=== PATIENT | female | born 1980 | race American Indian/Alaskan Native ===

== ENCOUNTER 2018-12-21 10:07 | Inpatient (IN) | payer MEDICAID, OTHER ==
--- NOTE | 2018-12-21 10:24 | C.PDOC ---
History Of Present Illness 38 year old female presents to the ED for evaluation of left breast abscess for one month. Patient reports no improvement after antibiotics. Patient reports persistent burning and pain. She denies discharge, fever. Patient was referred by Dr. Ewing for Incision and Drainage in the OR. L BREAST ABSCESS X 1 MO. NO IMPROVE AFTER ABX. PERSIST BURNING, PAIN. NO DC. NO FEVER. REFERRED BY DR EWING FOR I&D IN O.R. EXAM NONTOXIC BREAST Time Seen by Provider: 12/21/18 10:21 Chief Complaint (Nursing): Breast Problem History Per: Patient History/Exam Limitations: no limitations Onset/Duration Of Symptoms: Days Current Symptoms Are (Timing): Still Present Past Medical History Reviewed: Historical Data, Nursing Documentation, Vital Signs Vital Signs: Last Vital Signs Temp 98.4 F 12/21/18 10:15 Pulse 103 H 12/21/18 10:15 Resp 20 12/21/18 10:15 BP 155/91 H 12/21/18 10:15 Pulse Ox 97 12/21/18 10:15 - Medical History PMH: Asthma, HTN, Seizures (witness by significant other) Denies: Chronic Kidney Disease Surgical History: No Surg Hx Family History: States: Unknown Family Hx - Social History Hx Alcohol Use: Yes Hx Substance Use: No - Immunization History Hx Influenza Vaccination: Yes (10/2018) Hx Pneumococcal Vaccination: No Review Of Systems Constitutional: Negative for: Fever, Chills Skin: Positive for: Other (left breast abscess ) Physical Exam - Physical Exam Appears: Non-toxic, No Acute Distress Skin: Normal Color, Warm, Dry Head: Atraumatic, Normacephalic Eye(s): bilateral: Normal Inspection Oral Mucosa: Moist Neck: Supple Chest: Symmetrical, No Deformity, Tenderness (mild tenderness to left breast ) Cardiovascular: Rhythm Regular, No Murmur Respiratory: Normal Breath Sounds, No Rales, No Rhonchi, No Wheezing Extremity: Normal ROM, Capillary Refill (less than 2 seconds ) Neurological/Psych: Oriented x3, Normal Speech, Normal Cognition ED Course And Treatment - Laboratory Results Result Diagrams: 12/21/18 10:53 12/21/18 10:53 O2 Sat by Pulse Oximetry: 97 (on RA) Pulse Ox Interpretation: Normal Progress Note: Bloodwork, urinalysis and ultrasound ordered and reviewed. Disposition Counseled Patient/Family Regarding: Studies Performed, Diagnosis - Disposition Disposition: HOSPITALIZED Disposition Time: 10:24 Condition: STABLE - POA Present On Arrival: None - Clinical Impression Clinical Impression: Abscess of breast - Scribe Statement The provider has reviewed the documentation as recorded by the Scribe (Santa Miller) Provider Attestation: All medical record entries made by the Scribe were at my direction and personally dictated by me. I have reviewed the chart and agree that the record accurately reflects my personal performance of the history, physical exam, medical decision making, and the department course for this patient. I have also personally directed, reviewed, and agree with the discharge instructions and disposition.
[2018-12-21 11:08] LABS: BASO # 0.1 K/uL (0.0-0.2); BASO % 0.9 % (0.0-2.0); EOS # 0.2 K/uL (0.0-0.7); EOS % 3.6 % (0.0-4.0); HEMOGLOBIN 14.7 g/dL (11.0-16.0); LYMPH # 1.9 K/uL (1.0-4.3); MEAN CELL VOLUME 87.9 fL (81.0-99.0); MEAN CORPUSCULAR HEMOGLOBIN 30.1 pg (27.0-31.0); MEAN CORPUSCULAR HGB CONC 34.2 g/dL (33.0-37.0); MEAN PLATELET VOLUME 8.2 fL (7.2-11.7); MONO # 0.3 K/uL (0.0-0.8); MONO % 4.6 % (0.0-10.0); NEUT # 3.2 K/uL (1.8-7.0); NEUT % 56.9 % (50.0-75.0); NRBC % 0.1 % (0.0-2.0); RBC 4.88 Mil/uL (3.80-5.20)
[2018-12-21 11:11] LABS: WHITE BLOOD COUNT 5.7 K/uL (4.8-10.8)
[2018-12-21 11:12] LABS: HCG,QUALITATIVE URINE NEGATIVE (NEGATIVE)
[2018-12-21 11:17] LABS: SQUAMOUS EPITHIAL 3 /hpf (0-5); URINE BILIRUBIN NEGATIVE (NEGATIVE); URINE BLOOD NEGATIVE (NEGATIVE); URINE CLARITY Clear (Clear); URINE COLOR Yellow (YELLOW); URINE GLUCOSE (UA) NORMAL (Normal); URINE LEUKOCYTE ESTERASE NEG Leu/uL (Negative); URINE PROTEIN NEGATIVE (NEGATIVE); URINE UROBILINOGEN NORMAL mg/dL (0.2-1.0)
[2018-12-21 11:29] LABS: ALB/GLOB RATIO 1.4 (1.0-2.1); ALBUMIN 4.5 g/dL (3.5-5.0); ALT/SGPT 23 U/L (9-52); AST/SGOT 25 U/L (14-36); BLOOD UREA NITROGEN 10 mg/dL (7-17); CALCIUM 9.1 mg/dl (8.6-10.4); GFR NON-AFRICAN AMERICAN > 60
--- NOTE | 2018-12-21 11:32 | US ---
Date of service: 12/21/2018 HISTORY: Breast pain, abscess suspected left breast Relevant surgical history: 2015 4 left breast abscess TECHNIQUE: Sonographic evaluation of both breast was performed. FINDINGS: RIGHT BREAST: No solid or cystic masses identified. Cyst(s): None Breast mass: None Dilated ducts: None Parenchymal distortion: None Skin thickening or subcutaneous abnormalities: None No axillary lymphadenopathy identified. LEFT BREAST: Cyst(s): None Breast mass: None Dilated ducts: None Parenchymal distortion: None Skin thickening or subcutaneous abnormalities: None No axillary lymphadenopathy identified. IMPRESSION: No sonographic evidence of malignancy. BIRADS: BIRADS 1 (negative)
[2018-12-21] MEDS ORDERED: ceFAZolin 1 gm in NS 2 GM/200 ML BAG IVPB ONE (13:32)
[2018-12-21] MEDS ORDERED: Bupivacaine 0.25% 20 ML INJ IJ ONE (13:33)
[2018-12-21] MEDS ORDERED: Lidocaine Hydrochloride 10 ML INJ ONE (13:33)
[2018-12-21] MEDS ORDERED: Midazolam 2 MG/2 ML VIAL ONE (13:40)
[2018-12-21] MEDS ORDERED: Propofol 10 mg/ml Inj (20 ML) ONE (13:41)
[2018-12-21] MEDS: HYDROmorphone 0.5 mg/0.5 ml ISec IVP PRN ×2 (14:25→14:48)
[2018-12-21] MEDS ORDERED: Dextrose 5%/0.45% NS 1,000 ML IV ONE (15:45)
[2018-12-21] MEDS: Dextrose 5%/0.45% NS 1,000 ML IV SCH (16:26)
[2018-12-21] MEDS: Oxycodone/Acetaminophen 5/325 mg Tab PO PRN ×3 (17:04→21:05)
[2018-12-21] MEDS: (Novolin R) Insulin Human Regular 100 units/ml vial SC SCH (21:51)
--- NOTE | 2018-12-22 01:02 | OP ---
PROCEDURE DATE: 12/21/2018 PREOPERATIVE DIAGNOSIS: Infected left breast mass with abscess. POSTOPERATIVE DIAGNOSIS: Infected left breast mass with abscess. PROCEDURE PERFORMED: Wide deep excision of infected left breast mass with partial tissue flap closure. SURGEON: Gray Agarwal MD ANESTHESIA: General. BLOOD LOSS: 20 mL. POSTOPERATIVE CONDITION: Stable. INDICATIONS FOR SURGERY: This is a 38-year-old female with a history of having painful mass on the undersurface of her left breast. It was found to be an infected mass. She was taken to the OR after admission through the emergency room for I and D and possible excision. DESCRIPTION OF PROCEDURE: The patient was taken to the operating room. General anesthesia was administered. The left breast was prepped and draped. A generous elliptical incision was made surrounding the mass and infected area carried down to the subcutaneous tissue to near the fascia. Bleeding was controlled using the Bovie. The larger chest wall blood vessel was repaired. The wound was irrigated with copious amounts of saline solution. Any collections were drained and cultured. Partial tissue flap closure was performed at the periphery with Monocryl and the central portion was packed open with wet saline gauze. The patient tolerated the procedure well and returned to recovery room in stable condition. Gray Agarwal MD
[2018-12-22] MEDS: Dextrose 5%/0.45% NS 1,000 ML IV SCH ×2 (03:11→04:48)
[2018-12-22] MEDS: Oxycodone/Acetaminophen 5/325 mg Tab PO PRN (04:46)
[2018-12-22] MEDS: (Novolin R) Insulin Human Regular 100 units/ml vial SC SCH ×2 (07:57→11:43)
[2018-12-22] MEDS ORDERED: Midazolam 2 MG/2 ML VIAL ONE (16:14)
[2018-12-22] MEDS ORDERED: Propofol 10 mg/ml Inj (20 ML) ONE (16:14)
[2018-12-22] MEDS ORDERED: Lidocaine Hydrochloride 5 ML INJ ONE (16:15)
[2018-12-22] MEDS ORDERED: ceFAZolin 1 gm in NS 1 GM/100 ML BAG IVPB ONE (16:49)
[2018-12-22] MEDS ORDERED: Bacitracin 500 Units/gm Oint Foilpak UD ONE (16:49)
[2018-12-22] MEDS ORDERED: Lactated Ringer's 1,000 ML IV ONE (17:25)
[2018-12-22] MEDS ORDERED: HYDROmorphone 0.5 mg/0.5 ml ISec IVP PRN (17:27)
[2018-12-22 17:50] VITALS: O2SAT 95
[2018-12-22 18:28] VITALS: BP 142/90; PULSE 88; RESP 18; TEMP 97.6
--- NOTE | 2018-12-22 22:29 | HP ---
CHIEF COMPLAINT: Left breast pain. HISTORY OF PRESENT ILLNESS: This is a 38-year-old female young woman with history of type 2 diabetes, hypertension, hyperlipidemia, and seizure disorder who was compliant with diet, medication, and followup. She came in because of left breast pain, and she underwent surgery. She needs to be admitted. She has left breast pain. No fever, chills. She denies any nausea, vomiting. No seizure. No . No history of tingling, numbness, or paresthesias. PAST MEDICAL HISTORY: Diabetes, obesity, seizure, hypertension, hyperlipidemia. SOCIAL HISTORY: Nonsmoker, non-Et[employer] user. PHYSICAL EXAMINATION: GENERAL: A young female in no distress. VITAL SIGNS: Blood pressure 130/88, pulse 85, respiratory rate 20, temperature 98.5. LUNGS: Clear. ABDOMEN: Soft. CENTRAL NERVOUS SYSTEM: Normal. BREASTS: Left breast has a wound. ASSESSMENT: 1. Left breast abscess, status post incision and drainage. 2. Hypertension. 3. Seizure disorder. 4. Type 2 diabetes. PLAN: Admit. Detailed orders are written. Seen and examined. Deuce Breen MD
--- NOTE | 2018-12-23 00:05 | OP ---
PROCEDURE DATE: 12/22/2018 PREOPERATIVE DIAGNOSIS: Large open wound of left breast, status post excision of infected mass and drainage of an abscess. POSTOPERATIVE DIAGNOSIS: Large open wound of left breast, status post excision of infected mass and drainage of an abscess. PROCEDURE PERFORMED: Debridement of wound, re-drainage of abscess with advancement flap closure. SURGEON: Gray Agarwal MD ANESTHESIA: General. BLOOD LOSS: 30 mL. POSTOP CONDITION: Stable. PROCEDURE: The patient was taken to the operating room, general anesthesia was administered. The packing was removed from the left breast and left breast was prepped and draped. The wound was aggressively debrided. Any remaining collections were drained and cultured. Bleeding was controlled using a Bovie and a larger chest wall bleeder was repaired. Wound was irrigated with pulse streetcar repairer helper with saline and Kantrex solution and closed the advancement flap, full-thickness flaps were raised including muscle and fascia. Counter incisions were made and advancement flap closure was performed using multiple layers of heavy Monocryl, subcuticular Monocryl and skin clips. The patient tolerated the procedure well. Returned to recovery room in stable condition. Gray Agarwal MD
== END 2018-12-22 20:43 | disposition left against medical advice (07) | DRG 262 ==
LOC: C.6T 10:07 → C.ER 10:07 → C.SDS 10:27 → C.9S 14:22 → C.6T 14:53
PROVIDERS: ADMIT Surgery; ATTEND Surgery
PROC: 0HBU0ZZ Excision of Left Breast, Open Approach (ICD-10-PCS; principal; 2018-12-21 13:00)
PROC: 0H9U0ZZ Drainage of Left Breast, Open Approach (ICD-10-PCS; 2018-12-22)
DX: N61.1 Abscess of the breast and nipple (principal); J45.909 Unspecified asthma, uncomplicated; I10 Essential (primary) hypertension; G40.909 Epilepsy, unspecified, not intractable, without status epilepticus; E78.5 Hyperlipidemia, unspecified; E11.9 Type 2 diabetes mellitus without complications; N63.20 Unspecified lump in the left breast, unspecified quadrant